=== PATIENT | male | born 1990 | race Two or more races ===

== ENCOUNTER 2024-11-12 15:11 | Emergency (ER) | payer MEDICAID ==
[~2024-11-12] VITALS: Ht 177.8 cm; Wt 82.2 kg
[2024-11-12 15:38] VITALS: BP 130/84; PULSE 97; RESP 16; TEMP 98.2; O2SAT 96
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
== END 2024-11-12 17:00 | disposition home or self-care (01) ==
LOC: ER 15:11
DX: S01.81XD Laceration without foreign body of other part of head, subsequent encounter (principal); Z48.02 Encounter for removal of sutures; X58.XXXD Exposure to other specified factors, subsequent encounter